=== PATIENT | female | born 1935 | race Caucasian/White ===

== ENCOUNTER 2020-05-22 13:08 | Inpatient (IN) | payer MEDICARE, BC ==
[~2020-05-22] VITALS: Ht 182.9 cm; Wt 90.4 kg
[2020-05-22] MEDS ORDERED: LAMO25TA5 PO (16:19)
[2020-05-22] MEDS ORDERED: ATEN100T PO (16:19)
[2020-05-22] MEDS ORDERED: ACET-2154 PO (16:19)
[2020-05-22] MEDS ORDERED: LATA7.5D OP (16:19)
[2020-05-22] MEDS ORDERED: MIRT15TA7 PO (16:19)
[2020-05-22] MEDS ORDERED: DIGO125T PO (16:19)
[2020-05-22] MEDS ORDERED: POLY17PO4 PO (16:19)
[2020-05-22] MEDS ORDERED: ATOR40TA PO (16:19)
[2020-05-22] MEDS ORDERED: APIX5TAB PO (16:19)
[2020-05-22] MEDS ORDERED: VENL150C2 PO (16:19)
[2020-05-22] MEDS ORDERED: ISOS5TAB3 PO (16:19)
[2020-05-22] MEDS ORDERED: PANT40TA2 PO (16:19)
[2020-05-22] MEDS ORDERED: NITR0.4T SL (16:19)
[2020-05-22 16:22] VITALS: BP 155/68
[2020-05-22] MEDS ORDERED: MIRALAX 17 GM POWD.PACK PO PRN (16:45)
[2020-05-22] MEDS: ISOSORBIDE DINITRATE 10 MG TABLET PO SCH (18:21)
[2020-05-22] MEDS: LAMOTRIGINE 25 MG TABLET PO SCH (18:21)
[2020-05-22] MEDS: APIXABAN 5 MG TABLET PO SCH (18:23)
--- NOTE | 2020-05-22 19:30 | NUR ---
Admitted an 85 years old female patient from [facility] at 1500. Patient is AAO x 3 with episodes of forgetfulness noted. No acute distress noted. Patient is on continuos O2 3LPM; Patient also stated she uses O2 at home. Vital signs stable. Patient is S/P fall and S/P Right hip replacement done on 05/20/[address] Simmons. Surgical site on right hip intact and dry. NO redness or any s/sx of infection noted. No c/o pain at this time. Medications reconciled by admitting LITIGATION COUNSEL. Due evening meds administered as ordered and scheduled and tolerated well. Patient able to move as tolerated and with assistance; uses bed campbell. Skin intact, kept clean and dry. Needs attended and met, safety measures in place, call light left at bed side, endorsed to next shift and will continue with care.
[2020-05-22 19:52] VITALS: BP 107/71
[2020-05-22] MEDS: MIRTAZAPINE 15 MG TABLET PO SCH (20:47)
[2020-05-22] MEDS: ATORVASTATIN 40 MG TABLET PO SCH (20:47)
[2020-05-22] MEDS: LATANOPROST OPHT DROP 2.5 ML BOTTLE EACHEYE SCH (20:47)
[2020-05-22] MEDS: ACETAMINOPHEN 325 MG TABLET PO PRN (21:15)
--- NOTE | 2020-05-22 23:41 | NUR ---
Received patient resting in bed watching videos on her phone. No signs and symptoms of distress noted. Patient complaint of 5/10 right hip pain. Patient is on continuos O2 3LPM. SOB noted after taking sips of water with her medication. Administered all due medication. Gave Tylenol for pain, effective. Vital signs stable. Surgical site on right hip intact and dry. NO redness or any s/sx of infection noted. Sacrum is sightly red, picture taken and placed in chart. Patient able to move as tolerated and with assistance; uses bed campbell. All need attended kept clean, comfortable and dry. safety measures in place, call light and all personal items within patient reach. Continue to monitor through the night.
[2020-05-23 04:41] VITALS: BP 147/72
--- NOTE | 2020-05-23 06:07 | NUR ---
Patient slept well through the night. No further complaint presented. No fall/injury. All need attended and met. No significant event reported all night. Continue current rehab plan of care. VS stable.
[2020-05-23 06:30] LABS: BASOPHILS % (AUTO) 0.2 % (0.0-2.0); EOSINOPHILS # (AUTO) 0.3 K/uL (0.0-0.7); EOSINOPHILS % (AUTO) 3.1 % (0.0-7.0); HEMOGLOBIN 9.5 g/dL (10.9-14.3); LYMPHOCYTES # (AUTO) 0.7 K/uL (20.0-40.0); LYMPHOCYTES % (AUTO) 6.9 % (20.5-51.5); MEAN CORPUSCULAR HEMOGLOBIN 31.1 uug (24.7-32.8); MEAN CORPUSCULAR HGB CONC 34 g/dL (32.3-35.6); MEAN CORPUSCULAR VOLUME 91.7 fL (75.5-95.3); MONOCYTES # (AUTO) 0.9 K/uL (2.0-10.0); MONOCYTES % (AUTO) 9.1 % (0.0-11.0); NEUTROPHILS % (AUTO) 80.7 % (38.5-71.5); PLATELET COUNT (AUTO) 198 K/uL (179-408); RED BLOOD CELL COUNT(AUTO) 3.06 MIL/uL (3.63-4.92); WHITE BLOOD COUNT (AUTO) 9.9 K/uL (3.8-11.8)
[2020-05-23 06:31] LABS: CREATININE 0.7 mg/dL (0.6-1.3); POTASSIUM 3.5 mmol/L (3.5-5.1)
--- NOTE | 2020-05-23 08:01 | NUR ---
Patient is bed awake and eating breakfast at this time, AAO x 3, no acute distress noted. Denies any pain. safety measures in place and will continue with care.
[2020-05-23] MEDS: ATENOLOL 50 MG TABLET PO SCH (08:39)
[2020-05-23] MEDS: LAMOTRIGINE 25 MG TABLET PO SCH ×2 (08:39→16:57)
[2020-05-23] MEDS: VENLAFAXINE XR 150 MG CAP.SR.24H PO SCH (08:39)
[2020-05-23] MEDS: ISOSORBIDE DINITRATE 10 MG TABLET PO SCH ×2 (08:40→16:58)
[2020-05-23] MEDS: APIXABAN 5 MG TABLET PO SCH ×2 (08:41→16:56)
[2020-05-23] MEDS ORDERED: PANTOPRAZOLE SODIUM 40 MG TABLET.DR PO SCH (09:00)
--- NOTE | 2020-05-23 10:00 | NUR ---
Patient is AAO X 3 with episodes of forgetfulness noted. Able to express needs verbally. No acute distress or SOB noted. Patient is on continuos O2 at 3LPM via NC, O2 sating at 98% and above. All other VS stable. Due morning meds administered as ordered and scheduled and tolerated. Right hip surgical site with original dressing in place, intact and dry. No complain of pain while at rest. Patient was up with PT/OT and stated no pain for now. Needs attended, safety measures in place and will continue with care.
[2020-05-23] MEDS: DIGOXIN 125 MCG TABLET PO SCH (13:27)
--- NOTE | 2020-05-23 15:25 | NUR ---
Family Contact: SW called the pts daughter in law, Tory ([phone]), and informed her about the pts assessment and confirmed the information. ALICIA received the psychiatrist information from her and recommended home health as part of the discharge plan.
--- NOTE | 2020-05-23 15:33 | NUR ---
Tree Thinner Note: SW provided patient with the following caregiving resources: [facility]; ([phone]), [facility]; ([phone]), [facility]; ([phone]). ALICIA also recommended to the pts daughter in law, Tory ([phone]), that home health can be beneficial. construction ironworker helper will continue to remain available to patient and provide ongoing supportive counseling and assess for any psychosocial needs. construction ironworker helper will encourage patient to comply with ARU goals of care.
[2020-05-23 15:48] VITALS: BP 147/65
--- NOTE | 2020-05-23 18:30 | NUR ---
NO change of condition noted, skin kept clean and dry, repositioned patient, also reminded patient to reposition self to prevent any skin breakdown. Needs attended, safety measures in place and will continue with care.
[2020-05-23] MEDS: LATANOPROST OPHT DROP 2.5 ML BOTTLE EACHEYE SCH (20:08)
[2020-05-23] MEDS: MIRTAZAPINE 15 MG TABLET PO SCH (20:08)
[2020-05-23] MEDS: ATORVASTATIN 40 MG TABLET PO SCH (20:09)
[2020-05-23] MEDS: HYDROCODONE/APAP 5-325MG TABLET PO PRN (20:09)
[2020-05-23 20:15] VITALS: BP 122/33
--- NOTE | 2020-05-23 21:39 | NUR ---
Received patient resting in bed watching TV. No signs and symptoms of distress noted. vitals signs stable. Patient complaint of 6/10 right hip pain. Patient is on continuos O2 3LPM. Administered all due medication. Patient requested norco for pain, administered and effective patient is sleeping well, easily wakes up to name. No adverse affected noted. Surgical site on right hip intact and dry. No redness or any s/sx of infection noted. Sacrum is sightly red, applied z guard and protected with Mepilex. Patient able to move as tolerated and with assistance; uses bed campbell. All need attended kept clean, comfortable and dry. safety measures in place, call light and all personal items within patient reach. Continue to monitor through the night.
[2020-05-24 04:26] VITALS: BP 139/99
[2020-05-24] MEDS: PANTOPRAZOLE SODIUM 40 MG TABLET.DR PO SCH (06:05)
[2020-05-24] MEDS: ATENOLOL 50 MG TABLET PO SCH (08:35)
[2020-05-24] MEDS: VENLAFAXINE XR 150 MG CAP.SR.24H PO SCH (08:35)
[2020-05-24] MEDS: LAMOTRIGINE 25 MG TABLET PO SCH ×2 (08:35→17:18)
[2020-05-24] MEDS: ISOSORBIDE DINITRATE 10 MG TABLET PO SCH ×2 (08:35→17:18)
[2020-05-24] MEDS: APIXABAN 5 MG TABLET PO SCH ×2 (08:37→17:14)
[2020-05-24] MEDS: HYDROCODONE/APAP 5-325MG TABLET PO PRN ×2 (08:38→17:19)
[2020-05-24] MEDS: DIGOXIN 125 MCG TABLET PO SCH (12:27)
--- NOTE | 2020-05-24 14:18 | NUR ---
Received patient awake in bed in stable condition. Patient started therapy this morning. Pain management given prior to therapy. Patient maximum assist during BRP. Patient need reminders to help participation in daily activities to increase strenght and endurance. Patient compliant with medication. not in distress. will continue monitor
--- NOTE | 2020-05-24 14:37 | NUR ---
INTERDISCIPLINARY TEAM CONFERENC
[2020-05-24 16:00] VITALS: BP 130/59
--- NOTE | 2020-05-24 18:15 | NUR ---
Patient for wound consult for blister in surgical site. picture taken in the chart.
[2020-05-24 20:30] VITALS: BP 120/63
[2020-05-24] MEDS: LATANOPROST OPHT DROP 2.5 ML BOTTLE EACHEYE SCH (20:46)
[2020-05-24] MEDS: ATORVASTATIN 40 MG TABLET PO SCH (20:46)
[2020-05-24] MEDS: MIRTAZAPINE 15 MG TABLET PO SCH (20:46)
--- NOTE | 2020-05-24 22:35 | NUR ---
Received pt resting in bed and watching tv. AAO x3. On 3L O2 via NC, no acute distress noted. Denies pain/ discomfort. Due meds given as ordered. Turned and repositioned. Both heels offloaded. Safety measures maintained. Call light and personal items within reach. Will continue to monitor.
[2020-05-25 06:03] VITALS: BP 124/62
[2020-05-25] MEDS: PANTOPRAZOLE SODIUM 40 MG TABLET.DR PO SCH (06:16)
[2020-05-25 08:00] VITALS: BP 126/58
[2020-05-25] MEDS: VENLAFAXINE XR 150 MG CAP.SR.24H PO SCH (08:14)
[2020-05-25] MEDS: LAMOTRIGINE 25 MG TABLET PO SCH ×2 (08:14→17:06)
[2020-05-25] MEDS: APIXABAN 5 MG TABLET PO SCH ×2 (08:29→17:07)
[2020-05-25] MEDS: ISOSORBIDE DINITRATE 10 MG TABLET PO SCH ×2 (08:30→17:06)
[2020-05-25] MEDS: ATENOLOL 50 MG TABLET PO SCH (08:31)
[2020-05-25] MEDS: DIGOXIN 125 MCG TABLET PO SCH (12:27)
--- NOTE | 2020-05-25 13:16 | NUR ---
INDIVIDUALIZED PLAN OF CARE
[2020-05-25 16:10] VITALS: BP 123/88
--- NOTE | 2020-05-25 18:06 | NUR ---
patient is alert, awake, no sob, no active bleeding noted, incision site is dry, and clean, however bruised, no distress noted, patient participated with PT, OT services, tolerated well, assisted with adls, needs attended timely
[2020-05-25] MEDS: LATANOPROST OPHT DROP 2.5 ML BOTTLE EACHEYE SCH (20:13)
[2020-05-25] MEDS: MIRTAZAPINE 15 MG TABLET PO SCH (20:14)
[2020-05-25] MEDS: HYDROCODONE/APAP 5-325MG TABLET PO PRN (20:14)
[2020-05-25] MEDS: ATORVASTATIN 40 MG TABLET PO SCH (20:15)
[2020-05-25 20:34] VITALS: BP 131/62
--- NOTE | 2020-05-26 03:10 | NUR ---
Received Patient in bed. AAO x3. No acute distress or SOB was noted. On 2.5 L O2 via NC. Able to make needs known. Complained of pain on her right hip, rated 6/10, Narco 5-325 mg given and effective. All due medication given as ordered and well tolerated. Safety measures maintained, fall prevention observed. Skin assessed. All needs attended promptly. Bed in locked and low position, side rails up x2 for safety, bed alarm on. Call light and frequently using items within reach. Continue to monitor and will endorse to the oncoming nurse accordingly.
[2020-05-26 05:29] VITALS: BP 132/63
[2020-05-26] MEDS: HYDROCODONE/APAP 5-325MG TABLET PO PRN ×2 (05:49→22:09)
[2020-05-26] MEDS: PANTOPRAZOLE SODIUM 40 MG TABLET.DR PO SCH (06:10)
[2020-05-26 08:00] VITALS: BP 111/44
[2020-05-26] MEDS: VENLAFAXINE XR 150 MG CAP.SR.24H PO SCH (08:34)
[2020-05-26] MEDS: LAMOTRIGINE 25 MG TABLET PO SCH ×2 (08:34→16:47)
[2020-05-26] MEDS: APIXABAN 5 MG TABLET PO SCH ×2 (08:35→16:52)
[2020-05-26] MEDS: ATENOLOL 50 MG TABLET PO SCH ×2 (08:36→08:53)
[2020-05-26] MEDS: ISOSORBIDE DINITRATE 10 MG TABLET PO SCH ×3 (08:41→16:47)
--- NOTE | 2020-05-26 08:53 | NUR ---
informed dr engle, regarding patient blood pressure 111/44, and morning scheduled meds, tenormin 100mg, isodril 5mg, per dr engle ok to give it
--- NOTE | 2020-05-26 11:30 | NUR ---
Patient daughter in law called and stated that patient does not want shower or dress up with male nurse, options and availability of nurses explained to patient and daughter in law, staff members made aware about patient request, patient right to refuse care with male nurse respected, needs attended timely.
--- NOTE | 2020-05-26 12:14 | NUR ---
Patient noted with overconcern about her oxygen. patient stated she wants her oxygen to be 3 liter all the time, thats what she was use to get at home, explained to patient that your oxygen level is o2 saturation is 99% at 2 liter, and you have no distress such as no sob, no labored breathing or no other respiratory distress, however patient constantly keep asking about her oxygen need to be 3 liter. continue to monitor and continue to educate patient about oxygen use.
[2020-05-26] MEDS: DIGOXIN 125 MCG TABLET PO SCH (12:31)
[2020-05-26 16:18] VITALS: BP 93/58
[2020-05-26] MEDS: ATORVASTATIN 40 MG TABLET PO SCH (20:06)
[2020-05-26] MEDS: LATANOPROST OPHT DROP 2.5 ML BOTTLE EACHEYE SCH (20:06)
[2020-05-26] MEDS: MIRTAZAPINE 15 MG TABLET PO SCH (20:06)
[2020-05-26 20:15] VITALS: BP 130/57
--- NOTE | 2020-05-26 22:00 | NUR ---
Received patient resting in bed watching TV. No signs and symptoms of distress noted. vitals signs stable. Patient complaint of 6/10 right hip pain. Patient is on continuos O2 2LPM. Administered all due medication. Patient requested norco for pain, administered and effective patient is sleeping well, easily wakes up to name. Surgical site on right hip intact with steri strips, slight drainage noted. No redness or any s/sx of infection noted. Sacrum is sightly red, applied z guard and protected with Mepilex. Patient able to move as tolerated and with assistance; uses bed campbell. All need attended kept clean, comfortable and dry. safety measures in place, call light and all personal items within patient reach. Continue to monitor through the night.
[2020-05-27 05:44] VITALS: BP 148/81
[2020-05-27] MEDS: PANTOPRAZOLE SODIUM 40 MG TABLET.DR PO SCH (06:24)
[2020-05-27] MEDS: ACETAMINOPHEN 325 MG TABLET PO PRN (06:28)
--- NOTE | 2020-05-27 06:30 | NUR ---
Patient slept well through the night. Complaints of pain 5/10 in her hip this morning, medicate with Tylenol PRN. No further complaint presented. No fall/injury. All need attended and met. No significant event reported all night. Continue current rehab plan of care. VS stable. Will Endorse report to next shift.
[2020-05-27 07:30] VITALS: BP 127/63
[2020-05-27] MEDS: ATENOLOL 50 MG TABLET PO SCH (08:37)
[2020-05-27] MEDS: VENLAFAXINE XR 150 MG CAP.SR.24H PO SCH (08:38)
[2020-05-27] MEDS: LAMOTRIGINE 25 MG TABLET PO SCH ×2 (08:38→17:22)
[2020-05-27] MEDS: ISOSORBIDE DINITRATE 10 MG TABLET PO SCH ×2 (08:38→17:24)
[2020-05-27] MEDS: APIXABAN 5 MG TABLET PO SCH ×2 (08:44→17:31)
[2020-05-27] MEDS: DIGOXIN 125 MCG TABLET PO SCH (13:17)
[2020-05-27] MEDS: HYDROCODONE/APAP 5-325MG TABLET PO PRN ×2 (13:51→20:57)
[2020-05-27 16:00] VITALS: BP 119/68
--- NOTE | 2020-05-27 18:52 | NUR ---
Patient remains alert, oriented x 3, not in any form of distress. Patient initially noted with oxygen via NC on 2 LPM, with 98% saturation, titrated oxygen down to 1.5LPM and patient tolerated with 97%. Patient compliant with medications and tolerated well. Needs attended to promptly and met. Surgical incision site kept clean and dry with steri-strips on. Patient participated with PT, OT and ST and tolerated well. Call light and frequently used items placed within patient's reach. Safety measures maintained.
--- NOTE | 2020-05-27 19:45 | NUR ---
Awake, alert during initial rounds. Able to verbalized needs. HOB elevated with continuos O2 at 0.5L/min via NC saturating 96% at this time. No s/s of respiratory distress. Denies any pain/discomforts at this time. Safety measures and fall prevention maintained Continue care as planned.
[2020-05-27 19:53] VITALS: BP 117/46
[2020-05-27] MEDS: MIRTAZAPINE 15 MG TABLET PO SCH (20:21)
[2020-05-27] MEDS: LATANOPROST OPHT DROP 2.5 ML BOTTLE EACHEYE SCH (20:21)
[2020-05-27] MEDS: ATORVASTATIN 40 MG TABLET PO SCH (20:22)
[2020-05-28 05:20] VITALS: BP 148/75
--- NOTE | 2020-05-28 05:32 | NUR ---
Shift End Report: Slept well. Medicated once for pain after bedpan used with help. No further complaint presented after. No fall/injury. All needs attended and met. No significant event reported. Continue current rehab plan of care. Vs stable.
[2020-05-28] MEDS: HYDROCODONE/APAP 5-325MG TABLET PO PRN ×3 (06:28→18:34)
[2020-05-28] MEDS: PANTOPRAZOLE SODIUM 40 MG TABLET.DR PO SCH (06:28)
[2020-05-28 07:30] VITALS: BP 128/68
[2020-05-28] MEDS: ISOSORBIDE DINITRATE 10 MG TABLET PO SCH ×2 (09:08→17:32)
[2020-05-28] MEDS: ATENOLOL 50 MG TABLET PO SCH (09:09)
[2020-05-28] MEDS: VENLAFAXINE XR 150 MG CAP.SR.24H PO SCH (09:09)
[2020-05-28] MEDS: LAMOTRIGINE 25 MG TABLET PO SCH ×2 (09:09→17:33)
[2020-05-28] MEDS: APIXABAN 5 MG TABLET PO SCH ×2 (09:10→17:35)
[2020-05-28] MEDS: DIGOXIN 125 MCG TABLET PO SCH (13:28)
[2020-05-28 16:00] VITALS: BP 121/56
--- NOTE | 2020-05-28 18:00 | NUR ---
Patient is alert, oriented x 3, on 0.5LPM via NC , not in any form of distress. She complained of pain on left hip, given PRN pain medication with noted relief. Due medications administered and tolerated well. Patient participated with therapeutic exercises and tolerated well. Assisted with her needs promptly and met. Surgical incision on right hip well coaptated with steri-strips on, no signs or symptoms of infection. Kept clean and comfortable. Call light and frequently used items placed within patient's reach. Safety measures maintained.
[2020-05-28 20:00] VITALS: BP 116/53
[2020-05-28] MEDS: MIRTAZAPINE 15 MG TABLET PO SCH (20:52)
[2020-05-28] MEDS: LATANOPROST OPHT DROP 2.5 ML BOTTLE EACHEYE SCH (20:52)
[2020-05-28] MEDS: ATORVASTATIN 40 MG TABLET PO SCH (20:52)
--- NOTE | 2020-05-28 21:34 | NUR ---
Received patient resting in bed on her phone. No signs and symptoms of distress noted. vitals signs stable. Patient received norco, effective, no complaints of pain @ the moment. Patient is on continuos O2 0.5LPM via nasal canula, no SOB noted saturating @ 96%. Administered all due medication. Surgical site on right hip intact with steri strips, slight drainage noted. No redness or any s/sx of infection noted. Cleansed and reapplied steri strips to surgical site, no drainage noted. Sacrum is sightly red, applied z guard and protected with Mepilex. Patient able to move as tolerated and with assistance; uses bed campbell. Safety measures in place, call light and all personal items within patient reach. Continue to monitor through the night.
[2020-05-29] MEDS: HYDROCODONE/APAP 5-325MG TABLET PO PRN ×3 (02:14→13:03)
[2020-05-29 04:00] VITALS: BP 145/64
--- NOTE | 2020-05-29 06:03 | NUR ---
Patient slept well through the night. Complaints of pain 5/10 in her hip administered [place] PRN, effective. Patient verbally expressed burning sensation when she urinated, possible UTI. Will endorse to next shift. No fall/injury. All need attended and met. No significant event reported all night. Continue current rehab plan of care. VS stable. Will Endorse report to next shift.
[2020-05-29] MEDS: PANTOPRAZOLE SODIUM 40 MG TABLET.DR PO SCH (06:10)
--- NOTE | 2020-05-29 06:25 | NUR ---
John received to collect UA from Dr. Becca Prieto, urine specimen collected and sent to lab
[2020-05-29 07:00] LABS: *BILIRUBIN,URIN NEGATIVE (NEGATIVE); *BLOOD, URINE 3+ (NEGATIVE); *CLARITY,URINE CLOUDY (CLEAR); *COLOR,URINE Brown (YELLOW); *KETONES,URINE NEGATIVE (NEGATIVE); LEUKOCYTE ESTERASE ,URINE 3+ (NEGATIVE); NITRITE, URINE NEGATIVE (NEGATIVE); PH,URINE 7.5 (5.0-8.0); UGLUCOSE NEGATIVE (NEGATIVE)
[2020-05-29] MEDS: VENLAFAXINE XR 150 MG CAP.SR.24H PO SCH (08:49)
[2020-05-29] MEDS: APIXABAN 5 MG TABLET PO SCH ×2 (08:50→16:53)
[2020-05-29] MEDS: ISOSORBIDE DINITRATE 10 MG TABLET PO SCH ×2 (08:51→16:52)
[2020-05-29] MEDS: ATENOLOL 50 MG TABLET PO SCH (08:52)
[2020-05-29] MEDS: LAMOTRIGINE 25 MG TABLET PO SCH ×2 (08:55→16:51)
--- NOTE | 2020-05-29 09:26 | NUR ---
Patient is AAO x 4, no acute distress noted. vital signs stable. All due morning medications administered as ordered and scheduled. Patient requested for pain pill for pain 7/10 of the right hip and before PT/OT therapy. All meds tolerated well. skin kept clean and dry, safety measures in place and will continue with care.
[2020-05-29 11:29] VITALS: BP 139/63
[2020-05-29] MEDS: DIGOXIN 125 MCG TABLET PO SCH (13:00)
[2020-05-29 14:17] LABS: BACTERIA,URINE MANY /HPF (NONE SEEN); SQUAMOUS EPITHELIAL CELL,UR FEW /HPF (NONE SEEN); WBC,URINE 50-80 /HPF (0-3)
[2020-05-29 16:08] VITALS: BP 117/62
--- NOTE | 2020-05-29 18:19 | NUR ---
In stable condition, no SOB noted on O2 0.5LPM via NC. Due evening meds administered as ordered and scheduled. Patient and family requested to change pain mgnt medication to Tramadol instead of [place]. Informed Dr. De La Cruz with an order to d/c [place] and give Tramadol 50 PO Q 4HRSPRN. All other needs attended, call light left within easy reach and will continue with care.
[2020-05-29 20:01] VITALS: BP 129/56
[2020-05-29] MEDS: ATORVASTATIN 40 MG TABLET PO SCH (20:31)
[2020-05-29] MEDS: MIRTAZAPINE 15 MG TABLET PO SCH (20:31)
[2020-05-29] MEDS: LATANOPROST OPHT DROP 2.5 ML BOTTLE EACHEYE SCH (20:32)
--- NOTE | 2020-05-29 20:54 | NUR ---
Received pt resting in bed. AAO x3-4. On 0.5 LPM O2 via NC, no acute distress noted. Denies pain/ discomfort. Due meds given as ordered. Kraig Kat NP made aware of pt's UA result, no new order. Safety measures maintained. Call light and personal items within reach. Will continue to monitor.
[2020-05-30 04:55] VITALS: BP 141/69
[2020-05-30] MEDS: PANTOPRAZOLE SODIUM 40 MG TABLET.DR PO SCH (06:05)
[2020-05-30 06:19] LABS: BASOPHILS % (AUTO) 0.4 % (0.0-2.0); EOSINOPHILS # (AUTO) 0.3 K/uL (0.0-0.7); EOSINOPHILS % (AUTO) 3.9 % (0.0-7.0); HEMATOCRIT 24.7 % (31.2-41.9); HEMOGLOBIN 8.3 g/dL (10.9-14.3); LYMPHOCYTES # (AUTO) 0.8 K/uL (20.0-40.0); LYMPHOCYTES % (AUTO) 10.2 % (20.5-51.5); MEAN CORPUSCULAR HEMOGLOBIN 31.2 uug (24.7-32.8); MEAN CORPUSCULAR HGB CONC 34 g/dL (32.3-35.6); MEAN CORPUSCULAR VOLUME 92.6 fL (75.5-95.3); MONOCYTES # (AUTO) 0.7 K/uL (2.0-10.0); NEUTROPHILS # (AUTO) 5.8 K/uL (1.8-8.9); NEUTROPHILS % (AUTO) 76.5 % (38.5-71.5); PLATELET COUNT (AUTO) 261 K/uL (179-408); RED BLOOD CELL COUNT(AUTO) 2.67 MIL/uL (3.63-4.92); WHITE BLOOD COUNT (AUTO) 7.6 K/uL (3.8-11.8)
[2020-05-30 06:42] LABS: BILIRUBIN,TOTAL 0.6 mg/dL (0.2-1.0); CREATININE 0.8 mg/dL (0.6-1.3); MAGNESIUM 1.4 mg/dL (1.8-2.4); PHOSPHOROUS 3.5 mg/dL (2.5-4.9); POTASSIUM 3.9 mmol/L (3.5-5.1); TOTAL PROTEIN, SERUM 5.6 g/dL (6.4-8.2)
[2020-05-30 07:30] VITALS: BP 137/65
[2020-05-30] MEDS: ATENOLOL 50 MG TABLET PO SCH (08:44)
[2020-05-30] MEDS: ISOSORBIDE DINITRATE 10 MG TABLET PO SCH ×2 (08:44→17:03)
[2020-05-30] MEDS: LAMOTRIGINE 25 MG TABLET PO SCH ×2 (08:45→17:03)
[2020-05-30] MEDS: VENLAFAXINE XR 150 MG CAP.SR.24H PO SCH (08:45)
[2020-05-30] MEDS: APIXABAN 5 MG TABLET PO SCH ×2 (09:34→17:01)
[2020-05-30] MEDS: TRAMADOL HCL 50 MG TABLET PO PRN ×2 (09:47→14:55)
[2020-05-30] MEDS: DIGOXIN 125 MCG TABLET PO SCH (12:32)
[2020-05-30] MEDS ORDERED: MAGNESIUM OXIDE 400 MG TABLET PO ONE (15:00)
[2020-05-30 15:58] VITALS: BP 126/70
--- NOTE | 2020-05-30 18:54 | NUR ---
EOS Note: No significant acute changes during this shift. Pt. remain A/Ox3, verbally responsive and able to make her needs known. All due medications given as ordered and tolerated well. Pt. participated with PT and tolerated tx well. No new skin condition noted. No s/sx of bleeding, on Eliquis. On 0.5LPM via NC, no SOB. Magnesium replaced today (Mg 1.4) 800 mg PO. All pt. needs attended and met. Safety measures in place. Call light and all frequently used items within pt. reach. Will endorse to oncoming shift accordingly.
--- NOTE | 2020-05-30 19:36 | NUR ---
Awake, in bed, talking over the phone. No s/s of respiratory distress. Denied any pain/discomforts at this time. Safety measures and fall prevention maintained. Continue care as planned.
--- NOTE | 2020-05-30 19:52 | NUR ---
Patient urine culture result gram (-) rods, many bacteria on UA, Dr Marquez made aware, no further order given at this time. Charge nurse made aware.
[2020-05-30 20:18] VITALS: BP 120/49
[2020-05-30] MEDS: ATORVASTATIN 40 MG TABLET PO SCH (20:31)
[2020-05-30] MEDS: MIRTAZAPINE 15 MG TABLET PO SCH (20:31)
[2020-05-30] MEDS: LATANOPROST OPHT DROP 2.5 ML BOTTLE EACHEYE SCH (20:31)
[2020-05-31 04:00] VITALS: BP 155/65
[2020-05-31] MEDS: PANTOPRAZOLE SODIUM 40 MG TABLET.DR PO SCH (06:27)
--- NOTE | 2020-05-31 07:37 | NUR ---
Shift End Report: Vs stable. Slept well. No complaint presented all night. No significant event reported. Slept good. Continue current rehab plan of care.
[2020-05-31 07:43] VITALS: BP 141/60
[2020-05-31] MEDS: LAMOTRIGINE 25 MG TABLET PO SCH ×2 (08:16→17:00)
[2020-05-31] MEDS: VENLAFAXINE XR 150 MG CAP.SR.24H PO SCH (08:16)
[2020-05-31] MEDS: ATENOLOL 50 MG TABLET PO SCH (08:16)
[2020-05-31] MEDS: ISOSORBIDE DINITRATE 10 MG TABLET PO SCH ×2 (08:17→17:00)
[2020-05-31] MEDS: TRAMADOL HCL 50 MG TABLET PO PRN (08:18)
[2020-05-31] MEDS: APIXABAN 5 MG TABLET PO SCH ×2 (08:22→17:02)
--- NOTE | 2020-05-31 11:42 | NUR ---
Pt assessed, no acute distress, no SOB, pain reported as 7/10 when transferring from bed to standing to dress. PRN pain medication administered prior to therapy. Pt cooperative and compliant with medications and therapies as offered. Pain medication reported effective. Right hip incision site has slight bruising around no s/s of infection to surgical site. Call light placed within reach. Will continue to monitor.
--- NOTE | 2020-05-31 13:40 | NUR ---
INTERDISCIPLINARY TEAM CONFERENCE
[2020-05-31] MEDS: DIGOXIN 125 MCG TABLET PO SCH (13:55)
[2020-05-31 15:23] VITALS: BP 141/58
--- NOTE | 2020-05-31 19:50 | NUR ---
Sleeping during initial rounds. No s/s of respiratory distress noted. Safety measures and fall prevention maintained, Continue care as planned
[2020-05-31 20:16] VITALS: BP 140/68
[2020-05-31] MEDS: ATORVASTATIN 40 MG TABLET PO SCH (20:16)
[2020-05-31] MEDS: MIRTAZAPINE 15 MG TABLET PO SCH (20:16)
[2020-05-31] MEDS: LATANOPROST OPHT DROP 2.5 ML BOTTLE EACHEYE SCH (20:16)
[2020-06-01 05:31] VITALS: BP 147/78
--- NOTE | 2020-06-01 05:55 | NUR ---
Shift End Report: Slept well. No complaint presented all night. All needs attended and met. No fall/injury. No significant event reported. Continue current rehab plan of care. VS stable.
[2020-06-01] MEDS: PANTOPRAZOLE SODIUM 40 MG TABLET.DR PO SCH (06:26)
[2020-06-01] MEDS ORDERED: ALBUTEROL SULFATE 2.5 MG/3 ML NEBU NEB PRN (07:45)
[2020-06-01 08:00] VITALS: BP 139/62
[2020-06-01] MEDS: ISOSORBIDE DINITRATE 10 MG TABLET PO SCH ×2 (08:47→17:25)
[2020-06-01] MEDS: ATENOLOL 50 MG TABLET PO SCH (09:01)
[2020-06-01] MEDS: VENLAFAXINE XR 150 MG CAP.SR.24H PO SCH (09:13)
[2020-06-01] MEDS: LAMOTRIGINE 25 MG TABLET PO SCH ×2 (09:14→17:24)
[2020-06-01] MEDS: APIXABAN 5 MG TABLET PO SCH ×2 (09:15→17:29)
[2020-06-01] MEDS: TRAMADOL HCL 50 MG TABLET PO PRN ×2 (10:25→22:08)
--- NOTE | 2020-06-01 11:00 | NUR ---
patient noted with wheezing in the morning, dr cole aware, breathing tx given effective, no other distress noted.
[2020-06-01] MEDS: CEphaleXIN 500 MG CAPSULE PO SCH ×3 (12:27→20:17)
[2020-06-01] MEDS: DIGOXIN 125 MCG TABLET PO SCH (12:29)
[2020-06-01 16:26] VITALS: BP 140/60
--- NOTE | 2020-06-01 18:39 | NUR ---
no distress noted during shift, started on keflex for uti, assisted with adls, kept safe and comfortable.
[2020-06-01] MEDS: MIRTAZAPINE 15 MG TABLET PO SCH (20:17)
[2020-06-01] MEDS: ATORVASTATIN 40 MG TABLET PO SCH (20:17)
[2020-06-01] MEDS: LATANOPROST OPHT DROP 2.5 ML BOTTLE EACHEYE SCH (20:17)
--- NOTE | 2020-06-01 20:50 | NUR ---
Received pt resting in bed and talking on the phone. AAO x3. On 2L O2 via NC, tolerating well. No acute distress noted. Denies pain/ discomfort. Due meds given as ordered. Turned and repositioned. Both heels offloaded. Safety measures maintained. Call light and personal items within reach. Will continue to monitor.
[2020-06-01 21:16] VITALS: BP 126/126
[2020-06-02] MEDS: TRAMADOL HCL 50 MG TABLET PO PRN ×2 (05:29→15:03)
[2020-06-02 05:43] VITALS: BP 149/63
[2020-06-02] MEDS: PANTOPRAZOLE SODIUM 40 MG TABLET.DR PO SCH (06:17)
[2020-06-02 08:00] VITALS: BP 108/50
[2020-06-02] MEDS: ATENOLOL 50 MG TABLET PO SCH (09:00)
[2020-06-02] MEDS: ISOSORBIDE DINITRATE 10 MG TABLET PO SCH ×2 (09:00→17:38)
[2020-06-02] MEDS: LAMOTRIGINE 25 MG TABLET PO SCH ×2 (09:25→17:37)
[2020-06-02] MEDS: CEphaleXIN 500 MG CAPSULE PO SCH ×2 (09:25→20:52)
[2020-06-02] MEDS: VENLAFAXINE XR 150 MG CAP.SR.24H PO SCH (09:25)
[2020-06-02] MEDS: APIXABAN 5 MG TABLET PO SCH ×2 (09:26→17:37)
--- NOTE | 2020-06-02 09:47 | NUR ---
Patient is AAO x 4, no acute distress noted. Patient on 2LPM O2 via NC. Denies any pain at this time. All due morning medications administered as ordered and scheduled, tolerated well. Pt. on PO ATB of Keflex 500mg PO q 12hrs as ordered for UTI. ON continuos PT/OT therapy. Patient with one person assist for care and adls. Safety measures in place, call light left at bed side and will continue with care.
[2020-06-02] MEDS: DIGOXIN 125 MCG TABLET PO SCH (12:49)
[2020-06-02 16:07] VITALS: BP 141/62
--- NOTE | 2020-06-02 18:29 | NUR ---
NO new change of condition noted at this time, patient repositioned for comfort, ble elevated. Also informed patient to move side to side to prevent skin breakdown. needs attended and meet. will continue with care.
[2020-06-02 19:36] VITALS: BP 125/63
--- NOTE | 2020-06-02 19:49 | NUR ---
End of shift report given to PM nurse.
[2020-06-02] MEDS: LATANOPROST OPHT DROP 2.5 ML BOTTLE EACHEYE SCH (20:52)
[2020-06-02] MEDS: MIRTAZAPINE 15 MG TABLET PO SCH (20:52)
[2020-06-02] MEDS: ATORVASTATIN 40 MG TABLET PO SCH (20:52)
[2020-06-03] MEDS ORDERED: Z GUARD REMEDY PASTE 57 GM TUBE TOP PRN (02:15)
--- NOTE | 2020-06-03 04:13 | NUR ---
Received Patient in bed. AAO x3. No acute distress or SOB was noted. On 2 L O2 via NC. Able to make needs known. No complain of pain. All due medication given as ordered and well tolerated. Safety measures maintained, fall prevention observed. Skin care rendered. All needs attended promptly. Helped her with using bedpan and changed her as needed, kept her clean and dry. Bed in locked and low position, side rails up x2 for safety, bed alarm on. Call light and frequently using items within reach. Continue to monitor and will endorse to the oncoming nurse accordingly.
[2020-06-03 05:09] VITALS: BP 118/82
[2020-06-03] MEDS: PANTOPRAZOLE SODIUM 40 MG TABLET.DR PO SCH (06:00)
[2020-06-03 08:26] VITALS: BP 158/87
[2020-06-03 08:30] LABS: BASOPHILS % (AUTO) 0.6 % (0.0-2.0); EOSINOPHILS # (AUTO) 0.2 K/uL (0.0-0.7); EOSINOPHILS % (AUTO) 3.5 % (0.0-7.0); HEMATOCRIT 27.4 % (31.2-41.9); LYMPHOCYTES # (AUTO) 0.7 K/uL (20.0-40.0); LYMPHOCYTES % (AUTO) 13.1 % (20.5-51.5); MEAN CORPUSCULAR HEMOGLOBIN 31.1 uug (24.7-32.8); MEAN CORPUSCULAR HGB CONC 33 g/dL (32.3-35.6); MEAN CORPUSCULAR VOLUME 94.4 fL (75.5-95.3); MONOCYTES # (AUTO) 0.4 K/uL (2.0-10.0); MONOCYTES % (AUTO) 6.8 % (0.0-11.0); NEUTROPHILS # (AUTO) 4.3 K/uL (1.8-8.9); PLATELET COUNT (AUTO) 239 K/uL (179-408); WHITE BLOOD COUNT (AUTO) 5.7 K/uL (3.8-11.8)
[2020-06-03] MEDS: VENLAFAXINE XR 150 MG CAP.SR.24H PO SCH (08:30)
[2020-06-03] MEDS: LAMOTRIGINE 25 MG TABLET PO SCH ×2 (08:30→16:45)
[2020-06-03] MEDS: CEphaleXIN 500 MG CAPSULE PO SCH (08:30)
[2020-06-03] MEDS: ATENOLOL 50 MG TABLET PO SCH (08:31)
[2020-06-03] MEDS: LISINOPRIL 10 MG TABLET PO SCH (08:35)
[2020-06-03] MEDS: TRAMADOL HCL 50 MG TABLET PO PRN ×3 (08:35→21:05)
[2020-06-03] MEDS: APIXABAN 5 MG TABLET PO SCH ×2 (08:37→16:45)
[2020-06-03 09:03] LABS: BILIRUBIN,TOTAL 0.6 mg/dL (0.2-1.0); CREATININE 0.7 mg/dL (0.6-1.3); MAGNESIUM 1.7 mg/dL (1.8-2.4); PHOSPHOROUS 3.4 mg/dL (2.5-4.9); POTASSIUM 3.7 mmol/L (3.5-5.1); TOTAL PROTEIN, SERUM 6.1 g/dL (6.4-8.2)
--- NOTE | 2020-06-03 11:01 | NUR ---
Received patient awake in bed. AOx3-4 in stable condition. Patient pain management given prior to therapy. tolerated well. Patient assisted from bed to bedside commode with walker with moderate assist. tolerated well. Patient stool specimen for occult collected. Patient for urine collection for culture. will continue monitor
[2020-06-03] MEDS: DIGOXIN 125 MCG TABLET PO SCH (12:44)
[2020-06-03] MEDS: CEFTAZIDIME 2 G in IV DEXTROSE 5% 100 ML IV SCH ×2 (14:34→21:05)
--- NOTE | 2020-06-03 14:42 | NUR ---
Patient keflex PO discontinued, change and started to IV Ceftazidime 2mg every 8 hours for UTI. Insert IV site to left wrist G20. intact and patent. no adverse reaction noted. will continue monitor
[2020-06-03 15:50] VITALS: BP 128/62
[2020-06-03 20:06] VITALS: BP 113/42
[2020-06-03] MEDS: MIRTAZAPINE 15 MG TABLET PO SCH (21:04)
[2020-06-03] MEDS: ATORVASTATIN 40 MG TABLET PO SCH (21:04)
[2020-06-03] MEDS: LATANOPROST OPHT DROP 2.5 ML BOTTLE EACHEYE SCH (21:05)
[2020-06-04 05:00] VITALS: BP 120/60
[2020-06-04] MEDS: CEFTAZIDIME 2 G in IV DEXTROSE 5% 100 ML IV SCH ×3 (05:55→22:09)
[2020-06-04] MEDS: PANTOPRAZOLE SODIUM 40 MG TABLET.DR PO SCH (06:30)
[2020-06-04 07:33] VITALS: BP 131/50
[2020-06-04] MEDS: ATENOLOL 50 MG TABLET PO SCH (08:24)
[2020-06-04] MEDS: VENLAFAXINE XR 150 MG CAP.SR.24H PO SCH (08:24)
[2020-06-04] MEDS: ACETAMINOPHEN 325 MG TABLET PO PRN (08:25)
[2020-06-04] MEDS: LAMOTRIGINE 25 MG TABLET PO SCH ×2 (08:25→16:27)
[2020-06-04] MEDS: LISINOPRIL 10 MG TABLET PO SCH (08:25)
[2020-06-04] MEDS: APIXABAN 5 MG TABLET PO SCH ×2 (08:40→16:29)
[2020-06-04] MEDS: TRAMADOL HCL 50 MG TABLET PO PRN ×2 (12:31→21:21)
[2020-06-04] MEDS: DIGOXIN 125 MCG TABLET PO SCH (12:38)
--- NOTE | 2020-06-04 15:11 | NUR ---
Received patient awake in bed. Awake and in stable condition. Patient continue therapy for increase strenght and ADL activities. Patient continue ATB IV therapy for UTI. no adverse reaction noted. IV site intact and patent. not in distress. will continue monitor
[2020-06-04 15:19] VITALS: BP 114/54
[2020-06-04 20:00] VITALS: BP 122/50
[2020-06-04] MEDS: LATANOPROST OPHT DROP 2.5 ML BOTTLE EACHEYE SCH (21:18)
[2020-06-04] MEDS: ATORVASTATIN 40 MG TABLET PO SCH (21:18)
[2020-06-04] MEDS: MIRTAZAPINE 15 MG TABLET PO SCH (21:18)
[2020-06-05 04:00] VITALS: BP 143/76
[2020-06-05] MEDS: TRAMADOL HCL 50 MG TABLET PO PRN ×2 (05:01→20:16)
--- NOTE | 2020-06-05 05:27 | NUR ---
Received patient resting in bed. No signs and symptoms of distress noted. vitals signs stable. Patient is on continuos O2 2LPM via nasal canula saturating at 98%, titrated down to 1.5 saturating at 96-97%, no signs of SOB noted. Administered all due medication. Patient continue ATB IV therapy for UTI. no adverse reaction noted. IV site 20G Left wrist intact and patent. Not in distress. will continue monitor. Surgical site on right hip intact with steri strips, No redness or any s/sx of infection noted. Sacrum is sightly red, applied z guard and protected with Mepilex. Patient able to move as tolerated and with assistance; uses bed campbell. Safety measures in place, call light and all personal items within patient reach. Continue to monitor through the night. Patient received tramadol, effective, no complaints of pain @ the moment. Will endorse report to next shift accordingly.
[2020-06-05] MEDS: PANTOPRAZOLE SODIUM 40 MG TABLET.DR PO SCH (06:18)
[2020-06-05] MEDS: CEFTAZIDIME 2 G in IV DEXTROSE 5% 100 ML IV SCH ×3 (06:18→21:30)
[2020-06-05 08:00] VITALS: BP 127/54
[2020-06-05] MEDS: LAMOTRIGINE 25 MG TABLET PO SCH ×2 (09:06→16:58)
[2020-06-05] MEDS: VENLAFAXINE XR 150 MG CAP.SR.24H PO SCH (09:06)
[2020-06-05] MEDS: APIXABAN 5 MG TABLET PO SCH ×2 (09:09→16:58)
[2020-06-05] MEDS: LISINOPRIL 10 MG TABLET PO SCH (09:10)
--- NOTE | 2020-06-05 10:00 | NUR ---
Patient is AAO x 4, no acute distress noted. On O2 NC AT 1.5LPM. Denies any pain at this time. Due morning medications administered as ordered and scheduled, tolerated well. IV site on Left wrist 20 gauge intact and patent. Patient on IV ATB therapy of FORTAZ Q 8HRS for UTI as ordered. ON continuos PT/OT therapy. Patient with one person assist for care and adls. Skin kept clean and dry. Safety measures in place, call light left at bed side and will continue with care.
[2020-06-05] MEDS: ATENOLOL 50 MG TABLET PO SCH (10:40)
[2020-06-05 12:00] VITALS: BP 106/61
[2020-06-05] MEDS: DIGOXIN 125 MCG TABLET PO SCH (13:00)
[2020-06-05 16:07] VITALS: BP 127/73
--- NOTE | 2020-06-05 18:23 | NUR ---
IV ATB administered as ordered. IV site on Left wrist intact and patent. Due evening meds administered and tolerated well. Needs attended and met. Safety measures in place, call light left at bed side and will continue with care.
--- NOTE | 2020-06-05 19:50 | NUR ---
Awake, in bed, watching TV game show at this time. No s/s of respiratory distress. On O2 at 0.5L.mi via NC saturating 95% at this time. HOB elevated. Presented complaint of pain on right hip at this time in scale of 3/10.. Left wrist IV intact and patent. No redness/swelling noted on site but notice swelling/redness on left forearm. Will monitor Safety measures and fall prevention maintained. Continue care as planned.
[2020-06-05] MEDS: MIRTAZAPINE 15 MG TABLET PO SCH (20:13)
[2020-06-05] MEDS: LATANOPROST OPHT DROP 2.5 ML BOTTLE EACHEYE SCH (20:13)
[2020-06-05] MEDS: ATORVASTATIN 40 MG TABLET PO SCH (20:14)
[2020-06-05 20:49] VITALS: BP 117/50
[2020-06-06] MEDS: CEFTAZIDIME 2 G in IV DEXTROSE 5% 100 ML IV SCH ×3 (05:26→21:10)
[2020-06-06] MEDS: PANTOPRAZOLE SODIUM 40 MG TABLET.DR PO SCH (05:36)
[2020-06-06 06:00] VITALS: BP 138/59
--- NOTE | 2020-06-06 06:04 | NUR ---
Shift End Report: VS stable. Alert and oriented. Medicated once for pain with relief. No further complaint presented after. No respiratory distress. No s/s of adverse reaction noted from Fortaz IV antibiotic. IV site (-) for infiltration/swelling, intact and patent. Slept good. No significant event reported all night. All needs attended and met. Continue current rehab plan of care
[2020-06-06 08:00] VITALS: BP 132/71
[2020-06-06] MEDS: VENLAFAXINE XR 150 MG CAP.SR.24H PO SCH (08:41)
[2020-06-06] MEDS: LAMOTRIGINE 25 MG TABLET PO SCH ×2 (08:41→16:35)
[2020-06-06] MEDS: ATENOLOL 50 MG TABLET PO SCH (08:42)
[2020-06-06] MEDS: LISINOPRIL 10 MG TABLET PO SCH (08:42)
[2020-06-06] MEDS: APIXABAN 5 MG TABLET PO SCH ×2 (08:43→16:35)
[2020-06-06] MEDS: TRAMADOL HCL 50 MG TABLET PO PRN (08:51)
--- NOTE | 2020-06-06 11:46 | NUR ---
Patient is AAO x 4. NO SOB On O2 NC AT 0.5 LPM. Denies any pain at this time. Morning medications administered as ordered and scheduled, tolerated well. IV site on Left wrist gauge 20 intact and patent. Patient on IV ATB therapy of FORTAZ Q 8HRS; tolerating well. ON continuos PT/OT therapy. Skin kept clean and dry, made comfortable, needs attended and will continue with care.
[2020-06-06] MEDS: DIGOXIN 125 MCG TABLET PO SCH (13:39)
[2020-06-06] MEDS: FLUOCINONIDE 0.05% CREAM 30 GM TUBE TP SCH ×2 (13:45→16:46)
[2020-06-06 15:55] VITALS: BP 106/52
--- NOTE | 2020-06-06 19:35 | NUR ---
Patient in stable condition, safety measures in place, needs attended and met. Endorsed to next shift and will continue with care.
[2020-06-06 20:00] VITALS: BP 113/64
[2020-06-06] MEDS: ATORVASTATIN 40 MG TABLET PO SCH (21:05)
[2020-06-06] MEDS: LATANOPROST OPHT DROP 2.5 ML BOTTLE EACHEYE SCH (21:05)
[2020-06-06] MEDS: MIRTAZAPINE 15 MG TABLET PO SCH (21:05)
--- NOTE | 2020-06-06 21:43 | NUR ---
Received pt resting in bed. AAO x3-4. On 0.5 LPM O2 via NC. No acute distress noted. Denies pain/ discomfort. IV on left wrist patent and intact, receiving atb fortaz. Due meds given as ordered. Pt uses bedside commode, tolerated well. Turned and repositioned. Both heels offloaded. Safety measures maintained. Call light and personal items within reach. Will continue to monitor.
[2020-06-07 04:00] VITALS: BP 118/61
[2020-06-07] MEDS: PANTOPRAZOLE SODIUM 40 MG TABLET.DR PO SCH (06:02)
[2020-06-07] MEDS: CEFTAZIDIME 2 G in IV DEXTROSE 5% 100 ML IV SCH ×3 (06:04→22:34)
[2020-06-07 07:30] VITALS: BP 135/61
[2020-06-07] MEDS: LAMOTRIGINE 25 MG TABLET PO SCH ×2 (08:47→17:31)
[2020-06-07] MEDS: VENLAFAXINE XR 150 MG CAP.SR.24H PO SCH (08:47)
[2020-06-07] MEDS: LISINOPRIL 10 MG TABLET PO SCH (08:48)
[2020-06-07] MEDS: TRAMADOL HCL 50 MG TABLET PO PRN (08:49)
[2020-06-07] MEDS: ATENOLOL 50 MG TABLET PO SCH (08:49)
[2020-06-07] MEDS: APIXABAN 5 MG TABLET PO SCH ×2 (08:51→17:33)
[2020-06-07] MEDS: FLUOCINONIDE 0.05% CREAM 30 GM TUBE TP SCH ×2 (08:56→17:32)
[2020-06-07] MEDS: DIGOXIN 125 MCG TABLET PO SCH (13:29)
[2020-06-07 16:00] VITALS: BP 111/43
--- NOTE | 2020-06-07 16:32 | NUR ---
INTERDISCIPLINARY TEAM CONFERENCE
[2020-06-07] MEDS: MIRTAZAPINE 15 MG TABLET PO SCH (20:03)
[2020-06-07] MEDS: ATORVASTATIN 40 MG TABLET PO SCH (20:03)
[2020-06-07] MEDS: LATANOPROST OPHT DROP 2.5 ML BOTTLE EACHEYE SCH (20:03)
[2020-06-07 21:33] VITALS: BP 125/43
[2020-06-08] MEDS: TRAMADOL HCL 50 MG TABLET PO PRN ×2 (03:13→10:44)
--- NOTE | 2020-06-08 03:55 | NUR ---
Received Patient in bed. AAO x4. No acute distress or SOB was noted. On 1 L O2 via NC. Able to make needs known. Complained of pain on her right hip, rated her pain 6/10 in numeric scale, Tramadol 50 mg administered and effective. All due medication given as ordered and well tolerated. IV antibiotic administered. Pain assessed and reassessed after pain medication. IV line in the left wrist patent, no sign of inflammation. Safety measures maintained, fall prevention observed. Skin assessed. All needs attended promptly. Bed in locked and low position, side rails up x2 for safety, bed alarm on. Call light and frequently using items within reach. Continue to monitor and will endorse to the oncoming nurse accordingly.
[2020-06-08] MEDS: CEFTAZIDIME 2 G in IV DEXTROSE 5% 100 ML IV SCH (05:00)
[2020-06-08 05:05] VITALS: BP 127/64
[2020-06-08] MEDS: PANTOPRAZOLE SODIUM 40 MG TABLET.DR PO SCH (06:37)
[2020-06-08 06:53] LABS: BASOPHILS % (AUTO) 0.2 % (0.0-2.0); EOSINOPHILS # (AUTO) 0.6 K/uL (0.0-0.7); EOSINOPHILS % (AUTO) 9.1 % (0.0-7.0); HEMATOCRIT 27.9 % (31.2-41.9); HEMOGLOBIN 9.3 g/dL (10.9-14.3); LYMPHOCYTES # (AUTO) 0.7 K/uL (20.0-40.0); MEAN CORPUSCULAR HEMOGLOBIN 31.2 uug (24.7-32.8); MEAN CORPUSCULAR HGB CONC 33 g/dL (32.3-35.6); MEAN CORPUSCULAR VOLUME 93.6 fL (75.5-95.3); MONOCYTES # (AUTO) 0.5 K/uL (2.0-10.0); MONOCYTES % (AUTO) 8.6 % (0.0-11.0); NEUTROPHILS # (AUTO) 4.5 K/uL (1.8-8.9); NEUTROPHILS % (AUTO) 71.1 % (38.5-71.5); PLATELET COUNT (AUTO) 220 K/uL (179-408); RED BLOOD CELL COUNT(AUTO) 2.98 MIL/uL (3.63-4.92); WHITE BLOOD COUNT (AUTO) 6.4 K/uL (3.8-11.8)
[2020-06-08 07:06] LABS: BILIRUBIN,TOTAL 0.4 mg/dL (0.2-1.0); CREATININE 0.7 mg/dL (0.6-1.3); MAGNESIUM 1.6 mg/dL (1.8-2.4); PHOSPHOROUS 2.5 mg/dL (2.5-4.9); POTASSIUM 3.7 mmol/L (3.5-5.1); TOTAL PROTEIN, SERUM 5.5 g/dL (6.4-8.2)
[2020-06-08 08:00] VITALS: BP 126/46
--- NOTE | 2020-06-08 08:10 | NUR ---
Received pt resting in bed and talking on the phone with family. Awake alert and oriented x4. No acute distress noted at this time, patient is saturating well on 1L of oxygen. Patient report pain of 8/10 on the numeric scale,will administer pain medication as ordered. Turned and repositioned and both heels offloaded. Patient's peripheral IV on the left wrist 20 gauge is intact and patent. Medication given as ordered. Rash noted on the arms and legs, will make MD aware. Safety measures maintained by keeping bed in the lowest position and locked with alarm activated. Call light and personal belongings are within reach. Will continue to monitor.
[2020-06-08] MEDS: LISINOPRIL 10 MG TABLET PO SCH (09:00)
[2020-06-08] MEDS: ATENOLOL 50 MG TABLET PO SCH (09:09)
[2020-06-08] MEDS: VENLAFAXINE XR 150 MG CAP.SR.24H PO SCH (09:10)
[2020-06-08] MEDS: LAMOTRIGINE 25 MG TABLET PO SCH ×2 (09:10→17:32)
[2020-06-08] MEDS: APIXABAN 5 MG TABLET PO SCH ×2 (09:12→17:31)
[2020-06-08] MEDS: FLUOCINONIDE 0.05% CREAM 30 GM TUBE TP SCH ×2 (10:02→17:32)
[2020-06-08] MEDS: diphenhydrAMINE 25 MG CAP PO PRN ×2 (11:34→20:33)
--- NOTE | 2020-06-08 12:00 | NUR ---
Patient seen by Dr Kirby, he DC the antibiotic because of patient's rash. will continue to monitor for worsening symptoms
[2020-06-08] MEDS: DIGOXIN 125 MCG TABLET PO SCH (13:09)
[2020-06-08] MEDS ORDERED: MAGNESIUM OXIDE 400 MG TABLET PO ONE (13:15)
[2020-06-08 16:00] VITALS: BP 114/51
--- NOTE | 2020-06-08 19:27 | NUR ---
Patient is resting in bed, watching TV. Saturating well on 1L of oxygen NC. Medications given as ordered. All safety precautions in place. Will endorse to oncoming nurse.
--- NOTE | 2020-06-08 20:00 | NUR ---
Received patient resting in bed, watching TV. AxOx4, able to express needs. Denies any pain/discomfort at this time.No signs of distress, or SOB noted. Saturating 97% on 1L of oxygen NC. Vital sign WNL. Safety measures in place. Call light and all personal items within patient reach. Will continue to monitor.
[2020-06-08 20:15] VITALS: BP 124/54
--- NOTE | 2020-06-08 20:30 | NUR ---
urine clean catch collected and sent to lab
[2020-06-08] MEDS: MIRTAZAPINE 15 MG TABLET PO SCH (20:33)
[2020-06-08] MEDS: ATORVASTATIN 40 MG TABLET PO SCH (20:33)
[2020-06-08] MEDS: LATANOPROST OPHT DROP 2.5 ML BOTTLE EACHEYE SCH (20:33)
[2020-06-08 20:34] LABS: *BILIRUBIN,URIN NEGATIVE (NEGATIVE); *BLOOD, URINE 2+ (NEGATIVE); *CLARITY,URINE CLEAR (CLEAR); *COLOR,URINE DARK YELLOW (YELLOW); *KETONES,URINE NEGATIVE (NEGATIVE); *UROBILINOGEN,URINE 0.2 E.U./dl (NORMAL); LEUKOCYTE ESTERASE ,URINE TRACE (NEGATIVE); NITRITE, URINE NEGATIVE (NEGATIVE); PH,URINE 6.5 (5.0-8.0); UGLUCOSE NEGATIVE (NEGATIVE)
[2020-06-08 20:51] LABS: BACTERIA,URINE NONE SEEN /HPF (NONE SEEN); SQUAMOUS EPITHELIAL CELL,UR FEW /HPF (NONE SEEN)
--- NOTE | 2020-06-08 21:30 | NUR ---
Patient report pain of 4/10 on the numeric scale,patient requested Tylenol, administered. All due medication administered as ordered and PRN Benadryl given for rash. BLE heels offloaded. Patient's peripheral IV on the left wrist 20 gauge is intact and patent. Physical assessment done, Rash noted on the arms and legs. Safety measures maintained. Call light and personal belongings are within reach. Will continue to monitor.
[2020-06-08] MEDS: ACETAMINOPHEN 325 MG TABLET PO PRN (22:18)
[2020-06-09] MEDS: TRAMADOL HCL 50 MG TABLET PO PRN ×2 (01:54→06:59)
--- NOTE | 2020-06-09 02:00 | NUR ---
Patient complains of 7/10 pain, requested tramadol, administered. Assisted patient on bedpan multiple times. All needs attended to. Patient kept clean, dry, and comfortable. Will continue to monitor.
[2020-06-09 04:15] VITALS: BP 140/67
--- NOTE | 2020-06-09 05:59 | NUR ---
Patient slept well through the night. Vital signs WNL. No further complaint presented this shift. No significant event reported all night. All needs attended and met.Safety measures maintained, fall prevention observed. Skin assessed. All needs attended promptly. Bed in locked and low position, side rails up x2 for safety, bed alarm on. Call light and frequently using items within reach. Continue to monitor and will endorse to the oncoming nurse accordingly. Continue current rehab plan of care.
[2020-06-09] MEDS: PANTOPRAZOLE SODIUM 40 MG TABLET.DR PO SCH (06:49)
--- NOTE | 2020-06-09 07:04 | NUR ---
Patient complains of pain 5/10, requested tramadol, will monitor for effectiveness.
[2020-06-09 09:00] VITALS: BP 112/53
[2020-06-09] MEDS: ATENOLOL 50 MG TABLET PO SCH (09:00)
[2020-06-09] MEDS: LISINOPRIL 10 MG TABLET PO SCH (09:00)
[2020-06-09] MEDS: VENLAFAXINE XR 150 MG CAP.SR.24H PO SCH (09:46)
[2020-06-09] MEDS: APIXABAN 5 MG TABLET PO SCH (09:47)
[2020-06-09] MEDS: FLUOCINONIDE 0.05% CREAM 30 GM TUBE TP SCH (09:51)
--- NOTE | 2020-06-09 10:00 | NUR ---
Patient is AAO x 4. NO acute distress noted; On O2 NC AT 1 LPM. NO complains of pain at this time. Due medications administered as ordered and scheduled, tolerated well. IV site on Left wrist gauge 20 intact and patent. ON continuos PT/OT therapy. Made comfortable, needs attended and will continue with care.
[2020-06-09] MEDS: LAMOTRIGINE 25 MG TABLET PO SCH (10:54)
[2020-06-09] MEDS ORDERED: methylPREDNISolone SOD SUCC 40 MG/ML VIAL IV ONE (11:15)
[2020-06-09] MEDS ORDERED: MAGNESIUM OXIDE 400 MG TABLET PO ONE (11:30)
[2020-06-09] MEDS: DIGOXIN 125 MCG TABLET PO SCH (14:13)
--- NOTE | 2020-06-09 14:29 | NUR ---
Patient seen by MD, all discharge medications explained to patient. Patient discharge paper works singed by patient. Prescription faxed to preferred pharmacy and also informed family. Patient's all belongings checked, packed and given to patient. Inventory paper works singed. IV site from left wrist removed with dressing in place intact and dry. Vital signs stable. Needs attended and answered all questions. will continue with care.
--- NOTE | 2020-06-09 15:44 | NUR ---
Discharge notes: All paper discharge paper works given to patient. Patient picked up by [facility] assisted by [employer] via gurney, placed on O2 1 LPM with O2 sating at 97%. X-Ray CD given to patient. Patient also borrowed walker from hospital which was given to patient up on discharge. Patient thanked for the care provided and left at 15:40
== END 2020-06-09 15:40 | disposition home health service (06) | DRG 560 ==
PROVIDERS: ADMIT Physical Medicine & Rehabilitation Pain Medicine; ATTEND Physical Medicine & Rehabilitation Pain Medicine
DX: S72.001D Fracture of unspecified part of neck of right femur, subsequent encounter for closed fracture with routine healing (principal); D62 Acute posthemorrhagic anemia; D68.59 Other primary thrombophilia; I48.20 Chronic atrial fibrillation, unspecified; I50.32 Chronic diastolic (congestive) heart failure; J98.11 Atelectasis; N17.9 Acute kidney failure, unspecified; N39.0 Urinary tract infection, site not specified; J90 Pleural effusion, not elsewhere classified; Z96.643 Presence of artificial hip joint, bilateral; S30.0XXD Contusion of lower back and pelvis, subsequent encounter; W18.30XD Fall on same level, unspecified, subsequent encounter; D47.2 Monoclonal gammopathy; D69.6 Thrombocytopenia, unspecified; I11.0 Hypertensive heart disease with heart failure; N32.81 Overactive bladder; Z79.01 Long term (current) use of anticoagulants; B96.5 Pseudomonas (aeruginosa) (mallei) (pseudomallei) as the cause of diseases classified elsewhere; Z86.73 Personal history of transient ischemic attack (TIA), and cerebral infarction without residual deficits; R26.9 Unspecified abnormalities of gait and mobility; L27.0 Generalized skin eruption due to drugs and medicaments taken internally; T36.1X5D Adverse effect of cephalosporins and other beta-lactam antibiotics, subsequent encounter
CPT/HCPCS: 36415; 73501; 83550; 83735; 84100; 85025; 87077; 87086; A4663; J0713; J2920; J7040; J7060; Q0163